=== PATIENT | female | born 1950 | race Caucasian/White ===

== ENCOUNTER 2021-06-10 09:17 | Day surgery (SDC) | payer MEDICARE, BC ==
[~2021-06-10 09:17] MED LIST: Lactated Ringers 1,000 ML IV SCH; Sodium Chloride 0.9% 10 ML SDV IV PRN; Sodium Chloride 0.9% 10 ML Syringe FLUSH PRN; Sodium Chloride 0.9% 2.5 ML Syringe FLUSH PRN
[2021-06-10] MEDS ORDERED: propofoL 50 ML ONE (09:22)
--- NOTE | 2021-06-10 10:01 | PCM.PREANE ---
Preanesthetic Assessment - Procedure Proposed Procedure: Colonoscopy - Anesthesia/Transfusion/Family Hx Anesthesia History: Prior Anesthesia Without Reaction Family History of Anesthesia Reaction: No Transfusion History: No Prior Transfusion(s) - Review of Systems General: No Symptoms Pulmonary: No Symptoms (Smokes 2 cigs/day) Cardiovascular: No Symptoms (HLD) Gastrointestinal: No Symptoms (h/o polyps) Neurological: No Symptoms Other: Reports: None - Physical Assessment NPO Status Date: 06/08/21 NPO Status Time: 19:00 Vital Signs: Last Vital Signs Temp 97.9 F 06/10/21 09:22 Pulse 61 06/10/21 09:22 Resp 16 06/10/21 09:22 BP 112/75 06/10/21 09:22 Pulse Ox 97 06/10/21 09:22 Height: 5 ft 3 in Weight: 65.317 kg ASA Class: 2 Mental Status: Alert & Oriented x3 Airway Class: Mallampati = 2 Dentition: Reports: Normal Dentition Thyro-Mental Finger Breadths: 3 Mouth Opening Finger Breadths: 3 ROM/Head Extension: Full Lungs: Clear to Auscultation, Normal Respiratory Effort Cardiovascular: Regular Rate, Regular Rhythm - Allergies Allergies/Adverse Reactions: Allergies Allergy/AdvReac Type Severity Reaction Status Date / Time erythromycin base Allergy Rash Verified 06/04/21 13:19 - Acknowledgements Anesthesia Type Planned: General Anesthesia Pt an Appropriate Candidate for the Planned Anesthesia: Yes Alternatives and Risks of Anesthesia Discussed w Pt/Guardian: Yes Pt/Guardian Understands and Agrees with Anesthesia Plan: Yes PreAnesthesia Questionnaire HEENT History: Reports: Other (See Below) Other HEENT History: wears glasses Cardiovascular History: Reports: High Cholesterol Respiratory History: Reports: Other (See Below) Other Respiratory History: smoker x 50 years Gastrointestinal History: Reports: Colon Polyp Genitourinary History: Reports: None 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: Musculoskeletal History: Reports: Osteoarthritis Neurological History: Reports: None Psychiatric History: Reports: None Endocrine/Metabolic History: Reports: None Hematologic History: Reports: None Immunologic History: Reports: None Oncologic (Cancer) History: Reports: Basal Cell Carcinoma Other Oncologic History: removed from head - Past Surgical History Head Surgeries/Procedures: Reports: None Cardiovascular Surgical History: Reports: None Respiratory Surgical History: Reports: None GI Surgical History: Reports: Colonoscopy Female Surgical History: Reports: Salpingo-Oophorectomy Endocrine Surgical History: Reports: None Neurological Surgical History: Reports: None Musculoskeletal Surgical History: Reports: Carpal Tunnel, ORIF Other Musculoskeletal Surgeries/Procedures:: ORIF right ankle (has hardware) Dermatological Surgical History: Reports: Skin Biopsy - SUBSTANCE USE Tobacco Use Status *Q: Current Every Day Tobacco User Tobacco Use Within Last Twelve Months: Cigarettes Recreational Drug Use History: No - HOME MEDS Home Medications: Home Meds Aspirin [Adult Low Dose Aspirin EC] 81 mg PO DAILY 06/04/21 [History] Calcium Carbonate [Calcium] 1,200 mg PO DAILY 06/04/21 [History] Celecoxib [CeleBREX] 200 mg PO DAILY 06/04/21 [History] Rosuvastatin [Crestor] 5 mg PO DAILY 06/04/21 [History] - CURRENT (IN HOUSE) MEDS Current Meds: Current Medications Lactated Ringer's (Ringers, Lactated) 1,000 mls @ 125 mls/hr IV ASDIRECTED VIOLETTE Last Admin: 06/10/21 09:44 Dose: 125 mls/hr Documented by: Sodium Chloride (Sodium Chloride 0.9% 10 Ml Syringe) 10 ml FLUSH ASDIRECTED PRN PRN Reason: Keep Vein Open Sodium Chloride (Sodium Chloride 0.9% 2.5 Ml Syringe) 2.5 ml FLUSH ASDIRECTED PRN PRN Reason: Keep Vein Open Sodium Chloride (Sodium Chloride 0.9% 10 Ml Syringe) 10 ml FLUSH ASDIRECTED PRN PRN Reason: Keep Vein Open Sodium Chloride (Sodium Chloride 0.9% 2.5 Ml Syringe) 2.5 ml FLUSH ASDIRECTED PRN PRN Reason: Keep Vein Open Sodium Chloride (Sodium Chloride 0.9% 10 Ml Sdv) 10 ml IV ASDIRECTED PRN PRN Reason: IV Use Discontinued Medications Propofol (Diprivan 50 Ml) Confirm Administered Dose 50 mls @ as directed .ROUTE .STK-MED ONE Stop: 06/10/21 09:23
--- NOTE | 2021-06-10 11:29 | PCM.OPNOTE ---
- General Post-Op/Procedure Note Date of Surgery/Procedure: 06/10/21 Operative Procedure(s): Diagnostic colonoscopy with polypectomy Findings: Transverse colon, sigmoid colon polyp x 2, rectal polyp. Cecal bx, ascending colon, transverse, descending, sigmoid colon biopsies, rectal biopsy Pre Op Diagnosis: History of colon polyps, change in bowel habits Post-Op Diagnosis: Transverse colon polyp, sigmoid colon polyp x 2, rectal polyp Anesthesia Technique: MAC Primary Surgeon: Kianna Donovan Condition: Good
--- NOTE | 2021-06-10 11:34 | PCM.POSTAN ---
POST ANESTHESIA ASSESSMENT - MENTAL STATUS Mental Status: Alert, Oriented - VITAL SIGNS Vital Signs: Last Vital Signs Temp 97.9 F 06/10/21 09:22 Pulse 61 06/10/21 09:22 Resp 16 06/10/21 09:22 BP 112/75 06/10/21 09:22 Pulse Ox 97 06/10/21 09:22 - RESPIRATORY Respiratory Status: Respiratory Rate WNL, Airway Patent, O2 Saturation Stable - CARDIOVASCULAR CV Status: Pulse Rate WNL, Blood Pressure Stable - GASTROINTESTINAL GI Status: No Symptoms - PAIN Pain Score: 0 - POST OP HYDRATION Hydration Status: Adequate & Stable
--- NOTE | 2021-06-10 11:36 | PCM48HPAN ---
Post Anesthesia Note - EVALUATION WITHIN 48HRS OF ANESTHETIC Vital Signs in Normal Range: Yes Patient Participated in Evaluation: Yes Respiratory Function Stable: Yes Airway Patent: Yes Cardiovascular Function Stable: Yes Hydration Status Stable: Yes Pain Control Satisfactory: Yes Nausea and Vomiting Control Satisfactory: Yes Mental Status Recovered: Yes Vital Signs: Last Vital Signs Temp 97.9 F 06/10/21 09:22 Pulse 61 06/10/21 09:22 Resp 16 06/10/21 09:22 BP 112/75 06/10/21 09:22 Pulse Ox 97 06/10/21 09:22 - COMMENTS/OBSERVATIONS Free Text/Narrative:: Pt doing well post-op. VSS. No apparent anesthetic complications. Dr. Pako Fraser
--- NOTE | 2021-06-11 21:55 | OR ---
SURGEON: KIANNA DONOVAN MD DATE OF PROCEDURE: 06/10/2021 PREOPERATIVE DIAGNOSES: Change in bowel habits, history of polyps. POSTOPERATIVE DIAGNOSES: 1. Transverse colon polyp. 2. Sigmoid colon polyp x2. 3. Rectal polyp x1. PROCEDURE PERFORMED: Diagnostic colonoscopy with polypectomy and biopsies. PRIMARY SURGEON: Kianna Donovan MD ANESTHESIA: MAC. INSTRUMENT USED: Olympus colonoscope. EXTENT OF THE EXAM: To the cecum. PREPARATION: Good. LIMITATIONS: None. INDICATIONS FOR EXAMINATION: The patient is a 71-year-old female with a history of colon polyps. She has a recent change in her bowel habits. The decision was made to proceed with diagnostic colonoscopy. I explained the procedure, expected perioperative course, and the risks. She verbalized understanding and wishes to proceed. PROCEDURE IN DETAIL: The patient was brought in to the endoscopy suite and placed in a left lateral decubitus position. A time-out was completed verifying the patient's name, age, date of , allergies, and procedure to be performed. Monitored anesthesia care was induced and continuous oxygen was provided via nasal cannula throughout the procedure. After adequate sedation was achieved, a digital rectal exam was performed. This exam was within normal limits. A well-lubricated colonoscope was inserted into the rectum and advanced under direct visualization to the level of the cecum. The cecum was identified by both visual and anatomic landmarks. A photograph was taken of the cecal cap. The scope was then fully withdrawn while examining the color, texture, anatomy, and integrity of the mucosa from the cecum to the anal canal. Random biopsies were taken throughout the colon. They were labeled as cecum, ascending colon, transverse colon, descending colon, sigmoid colon, and rectal biopsies. The patient was noted to have small sessile polyps. There was one in the transverse colon, two in the sigmoid colon, and one in the rectum. These were all removed in piecemeal fashion using a cold biopsy forceps. The scope was retroflexed within the rectum to allow visualization of the anal canal opening. This appeared normal and a photograph was taken. The scope was then straightened out and fully withdrawn. The cecum to anus time was 12 minutes. The patient tolerated the procedure well and was transferred to the PACU in stable condition. ENDOSCOPIC DIAGNOSES: 1. Transverse colon polyp. 2. Sigmoid colon polyp x2. 3. Rectal polyp x1. RECOMMENDATION: Follow up in clinic in two weeks. TERI GASPAR /[id number]
== END 2021-06-10 12:00 | disposition home or self-care (01) ==
LOC: MW.SDS 09:17
PROVIDERS: ATTEND Surgery
DX: D12.5 Benign neoplasm of sigmoid colon (principal); D12.3 Benign neoplasm of transverse colon; K52.9 Noninfective gastroenteritis and colitis, unspecified; K62.1 Rectal polyp; F17.210 Nicotine dependence, cigarettes, uncomplicated; M19.90 Unspecified osteoarthritis, unspecified site; Z86.010 Personal history of colon polyps; Z80.0 Family history of malignant neoplasm of digestive organs
CPT/HCPCS: 45380; 88305; J2704; J7120; 00811; 99100

== ENCOUNTER 2022-08-03 08:20 | Inpatient (IN) | payer MEDICARE, BC ==
[2022-08-03] MEDS ORDERED: Sodium Chloride 0.9% 2.5 ML Syringe FLUSH PRN ×2 (08:42→13:18)
[2022-08-03] MEDS ORDERED: Sodium Chloride 0.9% 1,000 ML IV ONE (08:42)
[2022-08-03] MEDS ORDERED: Sodium Chloride 0.9% 10 ML Syringe FLUSH PRN ×2 (08:42→13:18)
[2022-08-03 09:27] LABS: CARBON DIOXIDE,CO2 26.9 mmol/L (21.0-32.0); POTASSIUM,K 3.9 mmol/L (3.5-5.1)
[2022-08-03] MEDS ORDERED: Iopamidol 755 MG/ML 500 ML Multipack Bottle IVPUSH ONE (09:56)
[2022-08-03] MEDS ORDERED: Famotidine 20 MG/2 ML SDV IVPUSH STA (10:59)
[2022-08-03] MEDS ORDERED: Ciprofloxacin in D5W 400 MG in Premix Bag 1 BAG IV STA ×2 (12:43)
[2022-08-03] MEDS ORDERED: Acetaminophen 325 MG Tab PO PRN (13:18)
[2022-08-03] MEDS ORDERED: Morphine 2 MG/ML SYRINGE IVPUSH PRN (13:18)
[2022-08-03] MEDS ORDERED: Ondansetron 4 MG/2 ML SDV IVPUSH PRN (13:20)
[2022-08-03] MEDS: Pantoprazole 40 MG in Sodium Chloride 0.9% 10 ML IVPUSH SCH (14:56)
[2022-08-03] MEDS: Lactated Ringers 1,000 ML IV SCH (14:57)
[2022-08-03] MEDS: metroNIDAZOLE/Normal Saline 500 MG in Premix Bag 1 BAG IV SCH ×2 (14:58→20:12)
[2022-08-03] MEDS ORDERED: metroNIDAZOLE/Normal Saline 500 MG in Premix Bag 1 BAG IV SCH (18:00)
[2022-08-04] MEDS: metroNIDAZOLE/Normal Saline 500 MG in Premix Bag 1 BAG IV SCH (01:14)
[2022-08-04] MEDS: Pantoprazole 40 MG in Sodium Chloride 0.9% 10 ML IVPUSH SCH ×2 (01:15→13:11)
[2022-08-04] MEDS: Ciprofloxacin in D5W 400 MG in Premix Bag 1 BAG IV SCH ×4 (02:36→13:11)
[2022-08-04] MEDS: Lactated Ringers 1,000 ML IV SCH ×3 (04:47→18:44)
[2022-08-04 06:44] LABS: CARBON DIOXIDE,CO2 26.7 mmol/L (21.0-32.0); POTASSIUM,K 4.1 mmol/L (3.5-5.1)
[2022-08-04] MEDS: metroNIDAZOLE/Normal Saline 100 ML IV SCH ×2 (08:26→16:24)
[2022-08-04] MEDS ORDERED: Bisacodyl 5 MG Tab PO ONE ×2 (10:00)
[2022-08-04] MEDS ORDERED: Polyethylene Glycol 3350 Powder 17 GM Packet PO SCH ×2 (12:00→16:00)
[2022-08-04] MEDS ORDERED: Rosuvastatin 10 MG Tab PO SCH (21:00)
[2022-08-05] MEDS: Pantoprazole 40 MG in Sodium Chloride 0.9% 10 ML IVPUSH SCH ×2 (01:02→13:49)
[2022-08-05] MEDS: metroNIDAZOLE/Normal Saline 100 ML IV SCH ×2 (01:03→09:33)
[2022-08-05] MEDS: Ciprofloxacin in D5W 400 MG in Premix Bag 1 BAG IV SCH ×4 (02:05→16:09)
[2022-08-05 05:23] LABS: CARBON DIOXIDE,CO2 25.6 mmol/L (21.0-32.0); POTASSIUM,K 3.6 mmol/L (3.5-5.1)
[2022-08-05] MEDS: Lactated Ringers 1,000 ML IV SCH (06:13)
[2022-08-05] MEDS ORDERED: Magnesium Sulfate/Water 2 GM in Premix Bag 1 BAG IV ONE (07:55)
[2022-08-05] MEDS ORDERED: Propofol 200 MG/20 ML SDV ONE ×2 (08:17→10:26)
[2022-08-05] MEDS ORDERED: Glycopyrrolate 0.2 MG/ML SDV ONE ×2 (09:51→10:10)
== END 2022-08-05 15:05 | disposition home or self-care (01) | DRG 379 ==
LOC: MW.ED 08:20 → MW.MS 12:44
PROVIDERS: ADMIT Student in an Organized Health Care Education/Training Program; ATTEND Student in an Organized Health Care Education/Training Program
PROC: 0DB98ZX Excision of Duodenum, Via Natural or Artificial Opening Endoscopic, Diagnostic (ICD-10-PCS; principal; 2022-08-05)
PROC: 0DB78ZX Excision of Stomach, Pylorus, Via Natural or Artificial Opening Endoscopic, Diagnostic (ICD-10-PCS; 2022-08-05)
PROC: 0DB68ZX Excision of Stomach, Via Natural or Artificial Opening Endoscopic, Diagnostic (ICD-10-PCS; 2022-08-05)
PROC: 0DBB8ZX Excision of Ileum, Via Natural or Artificial Opening Endoscopic, Diagnostic (ICD-10-PCS; 2022-08-05)
PROC: 0DBF8ZX Excision of Right Large Intestine, Via Natural or Artificial Opening Endoscopic, Diagnostic (ICD-10-PCS; 2022-08-05)
PROC: 0DBG8ZX Excision of Left Large Intestine, Via Natural or Artificial Opening Endoscopic, Diagnostic (ICD-10-PCS; 2022-08-05)
DX: K92.1 Melena (principal); E78.00 Pure hypercholesterolemia, unspecified; K29.71 Gastritis, unspecified, with bleeding; M19.90 Unspecified osteoarthritis, unspecified site; K29.81 Duodenitis with bleeding; K52.9 Noninfective gastroenteritis and colitis, unspecified; Z88.1 Allergy status to other antibiotic agents; E78.2 Mixed hyperlipidemia; R00.1 Bradycardia, unspecified; Z79.899 Other long term (current) drug therapy; Z96.698 Presence of other orthopedic joint implants; D12.0 Benign neoplasm of cecum; D12.4 Benign neoplasm of descending colon; D12.2 Benign neoplasm of ascending colon; D13.1 Benign neoplasm of stomach; M15.9 Polyosteoarthritis, unspecified; Z20.822 Contact with and (suspected) exposure to COVID-19; Z87.891 Personal history of nicotine dependence; Z88.8 Allergy status to other drugs, medicaments and biological substances; Z79.82 Long term (current) use of aspirin; Z97.3 Presence of spectacles and contact lenses; Z85.828 Personal history of other malignant neoplasm of skin; Z90.722 Acquired absence of ovaries, bilateral; Z90.89 Acquired absence of other organs; Z86.010 Personal history of colon polyps
CPT/HCPCS: 36415; 71045; 74177; 80053; 81003; 83605; 84484; 85025; 85610; 86900; 86901; J3490 ×2; J7030; Q9967; U0002; 00813; 80048; 82272; 83735; 85014; 85018; 87045; 87046; 87328; 87329; 87338; 87449; 87899; 88305; 93005; 93010; 99100; 99284; A9270-GY; C9113; J0744; J2704; J7120